=== PATIENT | female | born 1950 | race Caucasian/White ===

== ENCOUNTER 2022-01-09 12:15 | Emergency (ER) | payer OTHER ==
[~2022-01-09] VITALS: Ht 152.4 cm; Wt 80.7 kg
[2022-01-09 12:17] VITALS: BP 178/99
[2022-01-09] MEDS ORDERED: TETANUS-DIPTH-ACEL PERTUSSIS 0.5ML SYR Tdap IM ONE (13:45)
[2022-01-09] MEDS ORDERED: KETOROLAC TROMETH 30 MG/ML 1ML VIAL IM ONE (13:45)
[2022-01-09] MEDS ORDERED: traMADol HCL 50 MG TAB PO ONE (14:00)
[2022-01-09] MEDS ORDERED: TRAM-297 PO (14:09)
[2022-01-09] MEDS ORDERED: AMOX-277 PO (14:09)
== END 2022-01-09 14:15 | disposition home or self-care (01) ==
LOC: ER 12:15
DX: S02.2XXA Fracture of nasal bones, initial encounter for closed fracture (principal); S01.531A Puncture wound without foreign body of lip, initial encounter; S60.419A Abrasion of unspecified finger, initial encounter; E11.9 Type 2 diabetes mellitus without complications; I10 Essential (primary) hypertension; Z90.710 Acquired absence of both cervix and uterus; W10.8XXA Fall (on) (from) other stairs and steps, initial encounter; Y93.89 Activity, other specified; Y92.89 Other specified places as the place of occurrence of the external cause; Y99.8 Other external cause status
CPT/HCPCS: 70160; 90471; 90715; 96372; 99283; J1885